=== PATIENT | female | born 1945 | race Caucasian/White ===

== ENCOUNTER → 2018-01-20 | Outpatient (CLI) | payer OTHER ==
[~2018-01-20] MED LIST: ISOVUE-370 76% 100ML VIAL (Q9967) As Ordered
== END ==
LOC: M RAD 10:25
DX: M17.11 Unilateral primary osteoarthritis, right knee (principal)
CPT/HCPCS: Q9967

== ENCOUNTER → 2018-06-27 | Outpatient (CLI) | payer OTHER | LOC: M RAD 09:16 | DX: S72.21XD Displaced subtrochanteric fracture of right femur, subsequent encounter for closed fracture with routine healing (principal) | CPT/HCPCS: 78315 ==

== ENCOUNTER → 2020-04-21 | Outpatient (CLI) | payer OTHER ==
[~2020-04-21] MED LIST changes: +ALEN70TA74 PO; +ASPI81TA26 PO; +ATOR1TAB19 PO; +AZEL0.1S3; +AZEL1SPR3 NARES; +BUSP1TAB PO; +CITA20TA6 PO; +CITA40TA PO; +COUM2.5T17 PO; +D31000TA2 PO; -ISOVUE-370 76% 100ML VIAL (Q9967) As Ordered; +LISI-538 PO; +LISI10TA15 PO; +MAGN1TAB26 PO; +NICO21PAT TD; +OMEP1CAP73 PO; +OMEP40CA2 PO; +ONDA-83 PO; +PEG1POW PO; +PERCOCET PO; +PRAV1TAB39 PO; +PRIN10TA PO; +SENO8.6T10 PO; +VICOBULK PO; +VITA-122 PO; +WARF-18 PO; +[UNRECOGNIZED DRUG - CODE] PO; +zantac OR
== END ==
LOC: M LABSMTC 10:23
PROVIDERS: ATTEND Anesthesiology
DX: Z01.818 Encounter for other preprocedural examination (principal)
CPT/HCPCS: C9803; U0003

== ENCOUNTER 2020-04-23 09:52 | Day surgery (SDC) | payer MEDICARE ==
[~2020-04-23] VITALS: Ht 157.5 cm; Wt 60.3 kg
[~2020-04-23 09:52] MED LIST changes: +LIDOCAINE 2% 100MG/5ML SDV (FOR ANES.) As Ordered ONE; +NS 1,000 ML IV ONE; +propofoL 200 MG/20 ML VIAL As Ordered ONE
--- NOTE | 2020-04-23 10:55 | ROOR ---
Patient Name: Asuncion Adamson Procedure Date: 04/23/2020 10:41 AM Date of : 1945 Age: 74 Room: [facility] Gender: Female Note Status: Finalized Procedure: Upper Endoscopy + Biopsies Indications: Heartburn, Exclusion of Fraire's esophagus Providers: Freddy Abrams MD Referring MD: [facility], Admin. Requesting Provider: Medicines: Monitored Anesthesia Care Complications: No immediate complications. Procedure: Pre-Anesthesia Assessment: - The heart rate, respiratory rate, oxygen saturations, blood pressure, adequacy of pulmonary ventilation, and response to care were monitored throughout the procedure. The Endoscope was introduced through the mouth, and advanced to the second part of duodenum. The upper GI endoscopy was accomplished without difficulty. The patient tolerated the procedure well. Findings: The Z-line was variable and was found 35 cm from the incisors. Multiple biopsies were obtained with cold forceps for evaluation to rule out Fraire's Esophagus randomly at the gastroesophageal junction. A small hiatal hernia was present. No other significant abnormalities were identified in a careful examination of the stomach. The exam of the duodenum was otherwise normal. Impression: - Z-line variable, 35 cm from the incisors. - Small hiatal hernia. - Multiple biopsies were obtained at the gastroesophageal junction. - The examination was otherwise normal. Recommendation: - Patient has a contact number available for emergencies. The signs and symptoms of potential delayed complications were discussed with the patient. Return to normal activities tomorrow. Written discharge instructions were provided to the patient. - High fiber diet. - Discharge patient to home. - Follow an antireflux regimen. - Continue present medications. - Await pathology results. - Telephone GI clinic for pathology results in 1 week. - Return to referring physician. - The findings and recommendations were discussed with the patient. Freddy Abrams MD Freddy Abrams MD 04/23/2020 10:55:05 AM Electronically signed by Freddy Abrams MD Number of Addenda: 0 Note Initiated On: 04/23/2020 10:41 AM Estimated Blood Loss: Estimated blood loss: none.
[2020-04-23 11:35] VITALS: BP 189/74
--- NOTE | 2020-04-23 11:44 | ROOR ---
Patient Name: Asuncion Adamson Procedure Date: 04/23/2020 10:42 AM Date of : 1945 Age: 74 Room: [facility] Gender: Female Note Status: Finalized Procedure: Total Colonoscopy to Cecum + Cold Snare Polypectomy + Biopsies Indications: Screening for colorectal malignant neoplasm Providers: Freddy Abarms MD Referring MD: [facility], Admin. Requesting Provider: Medicines: Monitored Anesthesia Care Complications: No immediate complications. Procedure: Pre-Anesthesia Assessment: - The heart rate, respiratory rate, oxygen saturations, blood pressure, adequacy of pulmonary ventilation, and response to care were monitored throughout the procedure. The Colonoscope was introduced through the anus and advanced to the cecum, identified by appendiceal orifice and ileocecal valve. The colonoscopy was performed without difficulty. The patient tolerated the procedure well. The quality of the bowel preparation was excellent. Findings: The perianal and digital rectal examinations were normal. Non-bleeding internal hemorrhoids were found during retroflexion. The hemorrhoids were small and Grade I (internal hemorrhoids that do not prolapse). Scattered small-mouthed diverticula were found in the recto-sigmoid colon, sigmoid colon and descending colon. A diminutive polyp was found in the cecum. The polyp was sessile. The polyp was removed with a cold biopsy forceps. Resection and retrieval were complete. A medium polyp was found in the mid ascending colon. The polyp was carpet-like. The polyp was removed with a cold snare. Resection and retrieval were complete. The exam was otherwise without abnormality on direct and retroflexion views. Impression: - Non-bleeding internal hemorrhoids. - Diverticulosis in the recto-sigmoid colon, in the sigmoid colon and in the descending colon. - One diminutive polyp in the cecum, removed with a cold biopsy forceps. Resected and retrieved. - One medium polyp in the mid ascending colon, removed with a cold snare. Resected and retrieved. - The examination was otherwise normal on direct and retroflexion views. - The exam was otherwise normal to the cecum. Recommendation: - Patient has a contact number available for emergencies. The signs and symptoms of potential delayed complications were discussed with the patient. Return to normal activities tomorrow. Written discharge instructions were provided to the patient. - High fiber diet. - Discharge patient to home. - Continue present medications. - Await pathology results. - Telephone GI clinic for pathology results in 1 week. - Return to referring physician. - Repeat colonoscopy for symptoms only. - The findings and recommendations were discussed with the patient. Freddy Abrams MD Freddy Abrams MD 04/23/2020 11:43:59 AM Electronically signed by Freddy Abrams MD Number of Addenda: 0 Note Initiated On: 04/23/2020 10:42 AM Estimated Blood Loss: Estimated blood loss: none.
== END 2020-04-23 11:52 | disposition home or self-care (01) ==
LOC: M OPP 09:52
PROVIDERS: ATTEND Internal Medicine Gastroenterology
DX: Z12.11 Encounter for screening for malignant neoplasm of colon (principal); D12.0 Benign neoplasm of cecum; D12.2 Benign neoplasm of ascending colon; K64.0 First degree hemorrhoids; K57.30 Diverticulosis of large intestine without perforation or abscess without bleeding; K22.8 Other specified diseases of esophagus; K44.9 Diaphragmatic hernia without obstruction or gangrene; R12 Heartburn; K21.9 Gastro-esophageal reflux disease without esophagitis; I10 Essential (primary) hypertension; F17.210 Nicotine dependence, cigarettes, uncomplicated; Z79.899 Other long term (current) drug therapy; Z88.0 Allergy status to penicillin

== ENCOUNTER → 2020-10-06 | Outpatient (CLI) | payer MEDICARE ==
[~2020-10-06] MED LIST changes: -LIDOCAINE 2% 100MG/5ML SDV (FOR ANES.) As Ordered ONE; -NS 1,000 ML IV ONE; -propofoL 200 MG/20 ML VIAL As Ordered ONE
== END ==
LOC: M LABSMTC 11:22
PROVIDERS: ATTEND Family Medicine
DX: Z20.828 Contact with and (suspected) exposure to other viral communicable diseases (principal)

== ENCOUNTER → 2020-11-04 | Outpatient (REF) | payer MEDICARE ==
[~2020-11-04] MED LIST changes: -ALEN70TA74 PO; +ALEN70TA82 PO; -LISI-538 PO; +LISI20TA33 PO
== END ==
LOC: M LAB REF 16:13
PROVIDERS: ATTEND Internal Medicine
DX: K21.9 Gastro-esophageal reflux disease without esophagitis (principal); R11.0 Nausea

== ENCOUNTER → 2021-09-14 | Outpatient (CLI) | payer MEDICARE ==
[~2021-09-14] MED LIST changes: +ISOVUE-300 61% 50ML VIAL As Ordered ONE; +LIDOCAINE 1% MDV 20ML VIAL As Ordered ONE; -PEG1POW PO; +POLY17PO18 PO; +methylPREDNISolone SUSP 40MG/ML 1ML VIAL (DEPO MEDROL) As Ordered ONE
--- NOTE | 2021-09-14 17:27 | REP ---
INDICATION: TROCHANTERIC BURSITIS RT HIP. COMPARISON: None TECHNIQUE: The procedure was performed by CLAY Fuentes, under the direct supervision of Dr. Campbell. The benefits and risks of the procedure were explained to the patient, and an informed consent was obtained. Directly prior to the start of the procedure, a formal time-out was completed in the procedure room. The right hip joint space was localized using fluoroscopic guidance. The skin was prepped and draped in a sterile fashion. Approximately 5 mL of 1% Lidocaine 10 mg/ml was used as a local anesthetic. Using fluoroscopic guidance, a #22 gauge spinal needle was inserted and advanced into the right hip joint space. Approximately 3 mL of Isovue 300 was injected to verify placement. Seven mL of a solution containing 5 mL 1% lidocaine 10 mg/ml and 2 mL Medrol 40 mg/mL was injected into the joint space. The needle was removed and hemostasis was achieved. FINDINGS: The patient tolerated the procedure well and there were no immediate complications. IMPRESSION: 1. Technically successful right hip injection. 0.1 minutes of fluoroscopy time was utilized for this procedure. Some fluoroscopic images are performed with last image hold technology. These images require no additional radiation. <Electronically signed by Ami James > 09/14/21 1723 <Electronically signed by Emmanuel Campbell > 09/14/21 1721
== END ==
LOC: M RADPRO 13:07
PROVIDERS: ATTEND Physician Assistant Surgical
DX: M70.61 Trochanteric bursitis, right hip (principal)
CPT/HCPCS: 20610; 77002; J1030; Q9967

== ENCOUNTER → 2021-10-22 | Outpatient (CLI) | payer MEDICARE ==
[~2021-10-22] MED LIST changes: -ISOVUE-300 61% 50ML VIAL As Ordered ONE; -LIDOCAINE 1% MDV 20ML VIAL As Ordered ONE; -LISI10TA15 PO; +LISI10TA24 PO; -methylPREDNISolone SUSP 40MG/ML 1ML VIAL (DEPO MEDROL) As Ordered ONE
== END ==
LOC: M PLAIMG 09:19
PROVIDERS: ATTEND Physician Assistant Surgical
DX: M70.61 Trochanteric bursitis, right hip (principal)

== ENCOUNTER → 2021-10-28 | Outpatient (REF) | payer MEDICARE ==
[2021-10-28 14:32] LABS: BACTERIA, URINE AUTO 1+ (NEGATIVE); MUCUS, URINE SMALL (NEGATIVE); RBC, URINE AUTO 1 /HPF (0-3); SQUAMOUS EPITHELIAL CELL UR AU 9 /HPF (0-6); WBC, URINE AUTO 1 /HPF (0-3)
== END ==
LOC: M LAB REF 13:08
PROVIDERS: ATTEND Internal Medicine
DX: R31.9 Hematuria, unspecified (principal)

== ENCOUNTER → 2021-11-19 | Outpatient (REF) | payer MEDICARE ==
[2021-11-19 14:11] LABS: BACTERIA, URINE AUTO NEGATIVE (NEGATIVE); MUCUS, URINE SMALL (NEGATIVE); RBC, URINE AUTO 0 /HPF (0-3); SQUAMOUS EPITHELIAL CELL UR AU 2 /HPF (0-6); WBC, URINE AUTO 0 /HPF (0-3)
== END ==
LOC: M LAB REF 12:36
PROVIDERS: ATTEND Internal Medicine
DX: R31.9 Hematuria, unspecified (principal)

== ENCOUNTER → 2021-11-24 | Outpatient (REF) | payer MEDICARE ==
[2021-11-25 14:28] LABS: C REACTIVE PROTEIN QUANTITATIV 0.56 MG/DL (0.00-0.30)
== END ==
LOC: M LAB REF 11:51
PROVIDERS: ATTEND Internal Medicine
DX: R10.9 Unspecified abdominal pain (principal)

== ENCOUNTER → 2021-12-01 | Outpatient (REF) | payer MEDICARE ==
[~2021-12-01] MED LIST changes: -D31000TA2 PO; +VITA100093 PO
== END ==
LOC: M LAB REF 11:55
PROVIDERS: ATTEND Internal Medicine
DX: D72.829 Elevated white blood cell count, unspecified (principal); D75.839 Thrombocytosis, unspecified; D64.9 Anemia, unspecified

== ENCOUNTER → 2021-12-02 | Outpatient (CLI) | payer MEDICARE ==
[~2021-12-02] MED LIST changes: +D31000TA2 PO; -VITA100093 PO
== END ==
LOC: M PLAIMG 14:20
PROVIDERS: ATTEND Internal Medicine
DX: J44.9 Chronic obstructive pulmonary disease, unspecified (principal); D72.829 Elevated white blood cell count, unspecified; I27.20 Pulmonary hypertension, unspecified

== ENCOUNTER → 2021-12-07 | Outpatient (REF) | payer MEDICARE ==
[~2021-12-07] MED LIST changes: -D31000TA2 PO; +VITA100093 PO
== END ==
LOC: M LAB REF 16:02
PROVIDERS: ATTEND Internal Medicine
DX: I12.9 Hypertensive chronic kidney disease with stage 1 through stage 4 chronic kidney disease, or unspecified chronic kidney disease (principal); D72.829 Elevated white blood cell count, unspecified; N18.9 Chronic kidney disease, unspecified

== ENCOUNTER → 2022-01-20 | Outpatient (CLI) | payer MEDICARE ==
[~2022-01-20] MED LIST changes: +ALBU8.5H; +AMLO1TAB24; +ATOR40TA75; +MAGN400T2; +SPIR-10; +VARE1TAB2; +VITA500C24 PO
== END ==
LOC: M WHC 12:44
PROVIDERS: ATTEND Internal Medicine
DX: Z12.31 Encounter for screening mammogram for malignant neoplasm of breast (principal); Z13.820 Encounter for screening for osteoporosis; Z80.42 Family history of malignant neoplasm of prostate; M81.6 Localized osteoporosis [Lequesne]

== ENCOUNTER → 2022-01-26 | Outpatient (CLI) | payer MEDICARE | LOC: M WHC 14:41 | PROVIDERS: ATTEND Internal Medicine | DX: M79.661 Pain in right lower leg (principal) ==

== ENCOUNTER 2022-02-04 10:56 | Outpatient (CLI) | payer MEDICARE ==
[~2022-02-04] VITALS: Ht 157.5 cm; Wt 60.0 kg
[2022-02-04] MEDS ORDERED: ZOLEDRONIC ACID 5 MG in IV 1 EA IV ONE (11:00)
[2022-02-04 11:16] VITALS: BP 127/62
[2022-02-04 11:54] VITALS: BP 148/71
== END 2022-02-04 12:00 | disposition home or self-care (01) ==
LOC: M INFU 10:56
PROVIDERS: ATTEND Internal Medicine
DX: M81.0 Age-related osteoporosis without current pathological fracture (principal); Z88.0 Allergy status to penicillin
CPT/HCPCS: 96365; J3489

== ENCOUNTER → 2022-03-24 | Outpatient (REF) | payer MEDICARE ==
[2022-03-24 13:11] LABS: BLOOD UREA NITROGEN 7 MG/DL (7-18); CALCIUM LEVEL 8.3 MG/DL (8.8-10.2); CARBON DIOXIDE LEVEL 23 MEQ/L (21-32); CHLORIDE LEVEL 98 MEQ/L (98-107); CREATININE FOR GFR 0.75 MG/DL (0.55-1.30); GLOMERULAR FILTRATION RATE > 60.0 (>39); GLUCOSE, FASTING 72 MG/DL (70-100); MAGNESIUM LEVEL 0.8 MG/DL (1.8-2.4); POTASSIUM SERUM 3.1 MEQ/L (3.5-5.1); SODIUM LEVEL 131 MEQ/L (136-145)
== END ==
LOC: M LAB REF 10:47
PROVIDERS: ATTEND Internal Medicine
DX: E78.00 Pure hypercholesterolemia, unspecified (principal); E83.42 Hypomagnesemia

== ENCOUNTER → 2022-04-22 | Outpatient (REF) | payer MEDICARE ==
[2022-04-23 10:22] LABS: URIC ACID 5.7 MG/DL (2.6-6.0)
[2022-04-23 10:48] LABS: CREATININE,RANDOM URINE 21.3 MG/DL; URIC ACID,RANDOM URINE 13.3 MG/DL
== END ==
LOC: M LAB REF 12:21
PROVIDERS: ATTEND Internal Medicine
DX: E87.1 Hypo-osmolality and hyponatremia (principal); N18.31 Chronic kidney disease, stage 3a; M79.604 Pain in right leg

== ENCOUNTER → 2022-05-13 | Outpatient (CLI) | payer MEDICARE | LOC: M LAB 11:30 | PROVIDERS: ATTEND Internal Medicine | DX: M25.571 Pain in right ankle and joints of right foot (principal); M79.89 Other specified soft tissue disorders ==

== ENCOUNTER → 2022-06-03 | Outpatient (CLI) | payer MEDICARE ==
[~2022-06-03] MED LIST changes: +FLON1SPR NARES; +FURO20TA2; +ONDA-83; +POTA-136; +SALI0.6530 NARES; +TUMS500C PO; +VITMTA PO
== END ==
LOC: M RAD 16:42
PROVIDERS: ATTEND Internal Medicine
DX: R53.1 Weakness (principal)

== ENCOUNTER → 2022-06-09 | Outpatient (CLI) | payer MEDICARE | LOC: M WHC 09:55 | PROVIDERS: ATTEND Physician Assistant Surgical | DX: M25.474 Effusion, right foot (principal) ==

== ENCOUNTER → 2022-10-19 | Outpatient (CLI) | payer MEDICARE | LOC: M WHC 09:58 | PROVIDERS: ATTEND Physician Assistant Medical | DX: M79.89 Other specified soft tissue disorders (principal); M79.661 Pain in right lower leg ==

== ENCOUNTER → 2022-12-14 | Outpatient (REF) | payer MEDICARE ==
[~2022-12-14] MED LIST changes: +METO1TAB32
[2022-12-14 17:57] LABS: APPEARANCE, URINE CLEAR (CLEAR); BACTERIA, URINE AUTO NEGATIVE (NEGATIVE); BILIRUBIN, URINE AUTO NEGATIVE (NEGATIVE); BLOOD, URINE BLOOD NEGATIVE (NEGATIVE); COLOR, URINE YELLOW (YELLOW); GLUCOSE, URINE (UA) AUTO NEGATIVE (NEGATIVE); KETONE, URINE AUTO NEGATIVE (NEGATIVE); LEUKOCYTE ESTERASE, URINE AUTO NEGATIVE (NEGATIVE); NITRITE, URINE AUTO NEGATIVE (NEGATIVE); PROTEIN, URINE AUTO NEGATIVE (NEGATIVE); RBC, URINE AUTO 0 /HPF (0-3); SPECIFIC GRAVITY URINE AUTO 1.005 (1.002-1.035); SQUAMOUS EPITHELIAL CELL UR AU 1 /HPF (0-6); UROBILINOGEN, URINE AUTO 0.2 mg/dL (0.0-2.0); WBC, URINE AUTO 1 /HPF (0-3)
== END ==
LOC: M LAB REF 16:39
PROVIDERS: ATTEND Physician Assistant Medical
DX: R31.9 Hematuria, unspecified (principal)

== ENCOUNTER → 2022-12-17 | Outpatient (CLI) | payer MEDICARE | LOC: M RAD 13:40 | PROVIDERS: ATTEND Surgery Vascular Surgery | DX: I83.811 Varicose veins of right lower extremity with pain (principal); I87.2 Venous insufficiency (chronic) (peripheral); I87.8 Other specified disorders of veins ==

== ENCOUNTER → 2023-01-06 | Outpatient (REF) | payer MEDICARE ==
[2023-01-06 17:13] LABS: APPEARANCE, URINE CLEAR (CLEAR); BACTERIA, URINE AUTO NEGATIVE (NEGATIVE); BILIRUBIN, URINE AUTO NEGATIVE (NEGATIVE); BLOOD, URINE BLOOD 2+ (NEGATIVE); CALCIUM OXALATE CRYSTALS SMALL; COLOR, URINE YELLOW (YELLOW); GLUCOSE, URINE (UA) AUTO NEGATIVE (NEGATIVE); KETONE, URINE AUTO NEGATIVE (NEGATIVE); LEUKOCYTE ESTERASE, URINE AUTO NEGATIVE (NEGATIVE); MUCUS, URINE SMALL (NEGATIVE); NITRITE, URINE AUTO NEGATIVE (NEGATIVE); PROTEIN, URINE AUTO 2+ mg/dL (NEGATIVE); RBC, URINE AUTO 1 /HPF (0-3); SPECIFIC GRAVITY URINE AUTO 1.011 (1.002-1.035); SQUAMOUS EPITHELIAL CELL UR AU 0 /HPF (0-6); UROBILINOGEN, URINE AUTO 0.2 mg/dL (0.0-2.0); WBC, URINE AUTO 1 /HPF (0-3)
== END ==
LOC: M LAB REF 16:06
PROVIDERS: ATTEND Internal Medicine
DX: I12.9 Hypertensive chronic kidney disease with stage 1 through stage 4 chronic kidney disease, or unspecified chronic kidney disease (principal); N18.31 Chronic kidney disease, stage 3a

== ENCOUNTER 2023-01-18 12:48 | Outpatient (CLI) | payer MEDICARE ==
[2023-01-18 12:55] VITALS: BP 155/69
[2023-01-18] MEDS ORDERED: ZOLEDRONIC ACID 5 MG in IV 1 EA IV ONE (13:00)
[2023-01-18 14:47] VITALS: BP 140/65
== END 2023-01-18 13:45 | disposition home or self-care (01) ==
LOC: M INFU 12:48
PROVIDERS: ATTEND Internal Medicine
DX: M81.0 Age-related osteoporosis without current pathological fracture (principal); Z88.0 Allergy status to penicillin
CPT/HCPCS: 96365; J3489

== ENCOUNTER → 2023-01-31 | Outpatient (CLI) | payer MEDICARE | LOC: M PLAIMG 09:42 | PROVIDERS: ATTEND Internal Medicine | DX: R06.02 Shortness of breath (principal); I70.0 Atherosclerosis of aorta; M41.84 Other forms of scoliosis, thoracic region ==

== ENCOUNTER → 2023-02-14 | Outpatient (CLI) | payer MEDICARE | LOC: M WHC 01-13 12:59 | PROVIDERS: ATTEND Internal Medicine | DX: Z12.31 Encounter for screening mammogram for malignant neoplasm of breast (principal); Z53.9 Procedure and treatment not carried out, unspecified reason ==

== ENCOUNTER → 2023-03-31 | Outpatient (REF) | payer MEDICARE ==
[~2023-03-31] MED LIST changes: +BACL5TAB2; +ROSU10TA6
== END ==
LOC: M LAB REF 17:13
PROVIDERS: ATTEND Nurse Practitioner Family
DX: R19.7 Diarrhea, unspecified (principal)

== ENCOUNTER 2023-04-22 10:23 | Inpatient (IN) | payer MEDICARE ==
[~2023-04-22] VITALS: Ht 157.5 cm; Wt 54.0 kg
[~2023-04-22 10:23] MED LIST changes: -ALBU8.5H; +ALBU8.5H PO; -AMLO1TAB24; +AMLO1TAB24 PO; -METO1TAB32; +METO1TAB32 PO; -POTA-136; +POTA-136 PO; -ROSU10TA6; +ROSU10TA6 PO
[2023-04-22 11:47] LABS: BASO # 0.1 10^3/uL (0.0-0.2); BASO % 0.9 % (0.0-1.0); EOS # 0.1 10^3/uL (0.0-0.5); EOS % 0.3 % (0.0-3.0); HEMATOCRIT 40.3 % (36.0-47.0); HEMOGLOBIN 13.7 g/dl (12.0-15.5); LYMPH # 1.9 10^3/uL (1.5-5.0); LYMPH % 12.3 % (24.0-44.0); MEAN CORPUSCULAR HEMOGLOBIN 32.4 pg (27.0-33.0); MEAN CORPUSCULAR VOLUME 95.3 fl (80.0-96.0); MONO # 1.5 10^3/uL (0.0-0.8); MONO % 9.7 % (2.0-8.0); NEUTROPHILS # 11.5 10^3/uL (1.5-8.5); NEUTROPHILS % 76.2 % (36.0-66.0); PLATELET COUNT, AUTOMATED 442 10^3/uL (150-450); RED BLOOD COUNT 4.23 10^6/uL (4.00-5.40); WHITE BLOOD COUNT 15.1 10^3/uL (4.0-10.0)
[2023-04-22 11:59] LABS: INR 1.07; PROTHROMBIN TIME 14.1 SECONDS (12.5-14.5)
[2023-04-22 12:12] LABS: LIPASE 23 U/L (12-53)
[2023-04-22 12:13] LABS: AMYLASE 41 U/L (30-118)
[2023-04-22 12:14] LABS: ALBUMIN 3.5 G/DL (3.2-5.2); ALKALINE PHOSPHATASE 110 U/L (46-116); ALT/SGPT 28 U/L (7.0-40); AST/SGOT 29 U/L (<34); BILIRUBIN,DIRECT 0.2 MG/DL (<0.4); BILIRUBIN,TOTAL 0.4 MG/DL (0.3-1.2); BLOOD UREA NITROGEN 12 MG/DL (9-23); CALCIUM LEVEL 9.6 MG/DL (8.3-10.6); CARBON DIOXIDE LEVEL 18 MMOL/L (20-31); CHLORIDE LEVEL 97 MMOL/L (98-107); CREATININE FOR GFR 0.93 MG/DL (0.55-1.30); GLOMERULAR FILTRATION RATE > 60.0 (>39); GLUCOSE, FASTING 102 MG/DL (74-106); POTASSIUM SERUM 3.6 MMOL/L (3.5-5.1); SODIUM LEVEL 131 MMOL/L (136-145); TOTAL PROTEIN 6.3 G/DL (5.7-8.2)
[2023-04-22] MEDS ORDERED: ONDANSETRON 4MG 2ML VIAL IV ONE (13:15)
[2023-04-22] MEDS: NS 1,000 ML IV SCH ×2 (13:27→20:26)
[2023-04-22] MEDS ORDERED: MAG SULF 1GM/100ML (MAG RUN) 1 GM in IV 1 EA IV ONE (15:15)
[2023-04-22] MEDS ORDERED: ISOVUE-370 76% 100ML VIAL As Ordered ONE (15:31)
[2023-04-22] MEDS: MAG SULF 1GM/100ML (MAG RUN) 1 GM in IV 1 EA IV SCH ×2 (17:03→18:41)
[2023-04-22] MEDS ORDERED: ALBUTEROL 90 MCG/ACT 8GM HFA INHALER INH PRN (18:20)
[2023-04-22] MEDS ORDERED: MED REC IN PROGRESS XX SCH (19:10)
[2023-04-22] MEDS ORDERED: BUSP10TA PO (19:30)
[2023-04-22] MEDS ORDERED: HOME MED LIST COMPLETE! XX SCH (19:35)
[2023-04-22] MEDS ORDERED: PILL CUTTER 1 EACH XX PRN (19:55)
[2023-04-22 20:55] VITALS: BP 166/96
[2023-04-22] MEDS ORDERED: METOPROLOL SUCC *XL* 25MG TAB (TopROL *XL*) PO SCH (21:00)
[2023-04-22] MEDS ORDERED: POTASSIUM CHLORIDE 10MEQ SR TABLET PO SCH (21:00)
[2023-04-22] MEDS ORDERED: busPIRone 5 MG TAB PO SCH (21:00)
[2023-04-22] MEDS ORDERED: amLODIPine 5 MG TAB PO SCH (21:00)
[2023-04-22] MEDS ORDERED: MAGNESIUM OXIDE 400MG TAB (MAG-OX) PO SCH (21:00)
[2023-04-22 21:06] LABS: RSV AMPLIFICATION NEGATIVE (NEGATIVE)
[2023-04-23] MEDS: NS 1,000 ML IV SCH (01:52)
[2023-04-23 06:44] LABS: HEMATOCRIT 34.6 % (36.0-47.0); HEMOGLOBIN 11.9 g/dl (12.0-15.5); MEAN CORPUSCULAR HEMOGLOBIN 32.8 pg (27.0-33.0); MEAN CORPUSCULAR HGB CONC 34.4 g/dl (32.0-36.5); MEAN CORPUSCULAR VOLUME 95.3 fl (80.0-96.0); PLATELET COUNT, AUTOMATED 396 10^3/uL (150-450); RED BLOOD COUNT 3.63 10^6/uL (4.00-5.40); WHITE BLOOD COUNT 11.9 10^3/uL (4.0-10.0)
[2023-04-23 07:18] LABS: BLOOD UREA NITROGEN 8 MG/DL (9-23); CALCIUM LEVEL 8.1 MG/DL (8.3-10.6); CARBON DIOXIDE LEVEL 20 MMOL/L (20-31); CHLORIDE LEVEL 102 MMOL/L (98-107); CREATININE FOR GFR 0.66 MG/DL (0.55-1.30); GLOMERULAR FILTRATION RATE > 60.0 (>39); GLUCOSE, FASTING 89 MG/DL (74-106); MAGNESIUM LEVEL 1.6 MG/DL (1.8-2.4); POTASSIUM SERUM 3.6 MMOL/L (3.5-5.1); SODIUM LEVEL 131 MMOL/L (136-145)
[2023-04-23] MEDS ORDERED: MAG SULF 1GM/100ML (MAG RUN) 1 GM in IV 1 EA IV ONE (08:05)
[2023-04-23] MEDS ORDERED: LR 1,000 ML IV SCH (08:05)
[2023-04-23] MEDS ORDERED: ENOXAPARIN 40MG/0.4ML SYRINGE (J1650 PER 10MG) SC SCH (09:00)
[2023-04-23] MEDS ORDERED: POTASSIUM CHLORIDE 10MEQ SR TABLET PO SCH (09:00)
[2023-04-23] MEDS ORDERED: CitaloPRAM (CeleXA) 20 MG TAB PO SCH (09:00)
[2023-04-23] MEDS ORDERED: OMEP1CAP73 PO (10:23)
[2023-04-23] MEDS ORDERED: AMLO1TAB24 PO (10:23)
[2023-04-23] MEDS ORDERED: METO1TAB32 PO (10:23)
[2023-04-23] MEDS ORDERED: VITMTA PO (10:23)
[2023-04-23] MEDS ORDERED: CELE20TA PO (10:23)
[2023-04-23] MEDS ORDERED: BUSP5TA PO (10:23)
[2023-04-23] MEDS ORDERED: MAGN400T2 PO (10:23)
[2023-04-23] MEDS ORDERED: POTA-136 PO (10:23)
[2023-04-23] MEDS ORDERED: ALBU8.5H PO (10:23)
[2023-04-23] MEDS ORDERED: ROSU10TA6 PO (10:23)
[2023-04-23] MEDS ORDERED: BUSP10TA PO (10:23)
[2023-04-23 13:10] VITALS: BP 129/67; TEMP 96.9; O2SAT 98
== END 2023-04-23 13:10 | disposition home or self-care (01) | DRG 641 ==
LOC: M ED 10:23 → M ED INP 18:19
PROVIDERS: ADMIT Family Medicine; ATTEND Family Medicine
DX: E83.42 Hypomagnesemia (principal); E53.8 Deficiency of other specified B group vitamins; E03.9 Hypothyroidism, unspecified; E78.5 Hyperlipidemia, unspecified; I10 Essential (primary) hypertension; F41.9 Anxiety disorder, unspecified; J44.9 Chronic obstructive pulmonary disease, unspecified; Z79.890 Hormone replacement therapy; Z79.899 Other long term (current) drug therapy; Z20.822 Contact with and (suspected) exposure to COVID-19; Z88.0 Allergy status to penicillin; Z87.891 Personal history of nicotine dependence

== ENCOUNTER → 2023-05-30 | Outpatient (CLI) | payer MEDICARE ==
[~2023-05-30] MED LIST changes: +BUSP10TA PO; +BUSP5TA PO; +CELE20TA PO; +MAGN400T2 PO
== END ==
LOC: M PLAIMG 15:25
PROVIDERS: ATTEND Internal Medicine
DX: M54.40 Lumbago with sciatica, unspecified side (principal); M25.78 Osteophyte, vertebrae; M48.56XA Collapsed vertebra, not elsewhere classified, lumbar region, initial encounter for fracture; M48.54XA Collapsed vertebra, not elsewhere classified, thoracic region, initial encounter for fracture; I70.0 Atherosclerosis of aorta

== ENCOUNTER → 2023-07-25 | Outpatient (CLI) | payer MEDICARE | LOC: M RAD 09:50 | PROVIDERS: ATTEND Physician Assistant Surgical | DX: S80.01XA Contusion of right knee, initial encounter (principal); M17.11 Unilateral primary osteoarthritis, right knee; M25.461 Effusion, right knee; M11.261 Other chondrocalcinosis, right knee; S82.091A Other fracture of right patella, initial encounter for closed fracture; X58.XXXA Exposure to other specified factors, initial encounter; Y92.9 Unspecified place or not applicable; Y93.9 Activity, unspecified; Y99.9 Unspecified external cause status ==

== ENCOUNTER 2023-08-17 13:22 | Day surgery (SDC) | payer MEDICARE, MEDICAID ==
[~2023-08-17] VITALS: Ht 157.5 cm; Wt 56.3 kg
[~2023-08-17 13:22] MED LIST changes: +BACL5TAB2 PO; +CITA10TA7 PO; +CREO24CA PO; +NS 1,000 ML IV ONE; +OMEP-173 PO; +POTA1TAB23 PO; +ROSU20TA61 PO
[2023-08-17] MEDS ORDERED: fentaNYL 100 MCG/2 ML INJECTION As Ordered ONE (15:10)
[2023-08-17 15:42] VITALS: TEMP 96.7
[2023-08-17 16:06] VITALS: BP 117/64; O2SAT 98
== END 2023-08-17 16:06 | disposition home or self-care (01) ==
LOC: M OPP 13:22
PROVIDERS: ATTEND Internal Medicine Gastroenterology
DX: K51.90 Ulcerative colitis, unspecified, without complications (principal); K64.0 First degree hemorrhoids; K57.30 Diverticulosis of large intestine without perforation or abscess without bleeding; R19.7 Diarrhea, unspecified; Z86.010 Personal history of colon polyps; K44.9 Diaphragmatic hernia without obstruction or gangrene; K22.89 Other specified disease of esophagus; K31.89 Other diseases of stomach and duodenum; R12 Heartburn; F17.200 Nicotine dependence, unspecified, uncomplicated; Z79.02 Long term (current) use of antithrombotics/antiplatelets; Z79.1 Long term (current) use of non-steroidal anti-inflammatories (NSAID); Z79.891 Long term (current) use of opiate analgesic; Z79.83 Long term (current) use of bisphosphonates
CPT/HCPCS: 43239; 45380; 88305; J3010

== ENCOUNTER → 2023-11-10 | Outpatient (CLI) | payer MEDICARE, MEDICAID ==
[~2023-11-10] MED LIST changes: -NS 1,000 ML IV ONE
== END ==
LOC: M LAB 15:25
PROVIDERS: ATTEND Internal Medicine Gastroenterology
DX: R19.7 Diarrhea, unspecified (principal)

== ENCOUNTER → 2023-11-24 | Outpatient (CLI) | payer MEDICARE, MEDICAID ==
[~2023-11-24] MED LIST changes: +E-Z-GAS II EFFERVESCENT PACKET (SODIUM BICARB./CITRIC ACID/SIMETHICONE) As Ordered ONE; +E-Z-HD 98% w/w 340GM SUSP BTL As Ordered ONE; +E-Z-PAQUE 96% w/w SUSP 176GM BTL As Ordered ONE; -SALI0.6530 NARES; +SODI88SP NARES
== END ==
LOC: M RAD 07:46
PROVIDERS: ATTEND Internal Medicine Gastroenterology
DX: R19.7 Diarrhea, unspecified (principal); Z96.641 Presence of right artificial hip joint; R93.3 Abnormal findings on diagnostic imaging of other parts of digestive tract

== ENCOUNTER 2024-01-05 13:31 | Observation (INO) | payer MEDICARE, MEDICAID ==
[~2024-01-05] VITALS: Ht 157.5 cm; Wt 53.0 kg
[~2024-01-05 13:31] MED LIST changes: -E-Z-GAS II EFFERVESCENT PACKET (SODIUM BICARB./CITRIC ACID/SIMETHICONE) As Ordered ONE; -E-Z-HD 98% w/w 340GM SUSP BTL As Ordered ONE; -E-Z-PAQUE 96% w/w SUSP 176GM BTL As Ordered ONE
[2024-01-05] MEDS ORDERED: AMLO2.5T3 PO (14:33)
[2024-01-05] MEDS ORDERED: ERGO500029 PO (14:33)
[2024-01-05] MEDS: ACETAMINOPH W/CODEINE #3 TAB UD PO ONE (17:57)
[2024-01-05] MEDS: BOOSTRIX VACCINE (TETANUS/DIPHTH/ACEL. PERTUSSIS) 0.5ML SYR IM ONE (18:33)
[2024-01-05 18:53] LABS: BASO # 0.1 10^3/uL (0.0-0.2); BASO % 0.8 % (0.0-1.0); EOS % 0.2 % (0.0-3.0); HEMATOCRIT 39.5 % (36.0-47.0); HEMOGLOBIN 14.1 g/dl (12.0-15.5); LYMPH # 1.5 10^3/uL (1.5-5.0); LYMPH % 13.1 % (24.0-44.0); MEAN CORPUSCULAR HEMOGLOBIN 34.1 pg (27.0-33.0); MEAN CORPUSCULAR HGB CONC 35.7 g/dl (32.0-36.5); MEAN CORPUSCULAR VOLUME 95.6 fl (80.0-96.0); MONO # 1.2 10^3/uL (0.0-0.8); MONO % 10.1 % (2.0-8.0); NEUTROPHILS # 8.8 10^3/uL (1.5-8.5); NEUTROPHILS % 75.2 % (36.0-66.0); PLATELET COUNT, AUTOMATED 375 10^3/uL (150-450); RED BLOOD COUNT 4.13 10^6/uL (4.00-5.40); WHITE BLOOD COUNT 11.7 10^3/uL (4.0-10.0)
[2024-01-05 19:02] LABS: BLOOD UREA NITROGEN 10 MG/DL (9-23); CALCIUM LEVEL 9.5 MG/DL (8.3-10.6); CARBON DIOXIDE LEVEL 23 MMOL/L (20-31); CHLORIDE LEVEL 98 MMOL/L (98-107); CREATININE FOR GFR 0.82 MG/DL (0.55-1.30); GLOMERULAR FILTRATION RATE > 60.0 (>39); GLUCOSE, FASTING 121 MG/DL (74-106); POTASSIUM SERUM 3.9 MMOL/L (3.5-5.1); SODIUM LEVEL 130 MMOL/L (136-145)
[2024-01-05 19:05] LABS: INR 0.98; PARTIAL THROMBOPLASTIN TIME 33.4 SECONDS (24.8-34.2); PROTHROMBIN TIME 12.7 SECONDS (12.5-14.5)
[2024-01-05] MEDS ORDERED: ALBUTEROL SULFATE 2.5MG/0.5ML INH NEB SOLN NEB PRN (21:20)
[2024-01-05] MEDS ORDERED: ONDANSETRON 4MG 2ML VIAL IV PRN (21:20)
[2024-01-05 21:44] VITALS: BP 168/72
[2024-01-05 22:00] VITALS: BP 168/72
[2024-01-05 22:22] VITALS: BP 170/84
[2024-01-05] MEDS: METOPROLOL SUCC *XL* 25MG TAB (TopROL *XL*) PO SCH (22:22)
[2024-01-05 22:50] VITALS: BP 168/72; TEMP 97.2; O2SAT 96
[2024-01-05] MEDS ORDERED: ALBU8.5H INH (23:15)
[2024-01-05] MEDS ORDERED: LOPE1CAP5 PO (23:15)
[2024-01-05] MEDS ORDERED: MULT-193 PO (23:15)
[2024-01-05] MEDS ORDERED: POTA-136 PO (23:15)
[2024-01-05] MEDS ORDERED: HOME MED LIST COMPLETE! XX SCH (23:20)
[2024-01-06 02:36] VITALS: BP 151/71; TEMP 98.1; O2SAT 95
[2024-01-06] MEDS: NORCO, ANEXSIA 5/325MG TABLET (HYDROcodone/ACETAMINOPHEN) PO PRN (02:42)
[2024-01-06 05:38] VITALS: BP 154/68; TEMP 98.4; O2SAT 95
[2024-01-06 05:51] LABS: APPEARANCE, URINE HAZY (CLEAR); BACTERIA, URINE AUTO NEGATIVE (NEGATIVE); BILIRUBIN, URINE AUTO NEGATIVE (NEGATIVE); BLOOD, URINE BLOOD 2+ (NEGATIVE); COLOR, URINE YELLOW (YELLOW); GLUCOSE, URINE (UA) AUTO NEGATIVE (NEGATIVE); KETONE, URINE AUTO TRACE mg/dL (NEGATIVE); LEUKOCYTE ESTERASE, URINE AUTO NEGATIVE (NEGATIVE); NITRITE, URINE AUTO NEGATIVE (NEGATIVE); PROTEIN, URINE AUTO 2+ mg/dL (NEGATIVE); RBC, URINE AUTO 0 /HPF (0-3); SPECIFIC GRAVITY URINE AUTO 1.012 (1.002-1.035); SQUAMOUS EPITHELIAL CELL UR AU 0 /HPF (0-6); UROBILINOGEN, URINE AUTO 0.2 mg/dL (0.0-2.0); WBC, URINE AUTO 1 /HPF (0-3)
[2024-01-06 06:46] LABS: BLOOD UREA NITROGEN 13 MG/DL (9-23); CALCIUM LEVEL 9.4 MG/DL (8.3-10.6); CARBON DIOXIDE LEVEL 25 MMOL/L (20-31); CHLORIDE LEVEL 98 MMOL/L (98-107); CREATININE FOR GFR 0.83 MG/DL (0.55-1.30); GLOMERULAR FILTRATION RATE > 60.0 (>39); GLUCOSE, FASTING 96 MG/DL (74-106); POTASSIUM SERUM 4.1 MMOL/L (3.5-5.1); SODIUM LEVEL 131 MMOL/L (136-145)
[2024-01-06] MEDS: ACETAMINOPHEN TAB 650MG DOSE (2X325MG) PO PRN (06:57)
[2024-01-06 10:26] VITALS: O2SAT 93
[2024-01-06] MEDS ORDERED: PERC5TAB12 PO (11:20)
== END 2024-01-06 12:24 | disposition home or self-care (01) ==
LOC: M ED 15:00 → M ED INP 21:18 → ENRESERV 22:23 → M MSPAV 22:41
PROVIDERS: ADMIT Internal Medicine; ATTEND Internal Medicine
DX: S62.165A Nondisplaced fracture of pisiform, left wrist, initial encounter for closed fracture (principal); W19.XXXA Unspecified fall, initial encounter; Y92.481 Parking lot as the place of occurrence of the external cause; Y93.9 Activity, unspecified; I10 Essential (primary) hypertension; K21.9 Gastro-esophageal reflux disease without esophagitis; F41.9 Anxiety disorder, unspecified; F32.A Depression, unspecified; J44.9 Chronic obstructive pulmonary disease, unspecified; Z79.899 Other long term (current) drug therapy; Z88.0 Allergy status to penicillin; Z87.891 Personal history of nicotine dependence
CPT/HCPCS: 36415; 70450; 70486; 72125; 73070; 73090; 73110; 73130; 73200; 80048; 81001; 85025; 85610; 85730; 90471; 90715; 93005; 97161; 97165; 99284; G0378

== ENCOUNTER → 2024-02-16 | Outpatient (CLI) | payer MEDICARE, MEDICAID ==
[~2024-02-16] MED LIST changes: +ALBU8.5H INH; +AMLO2.5T3 PO; +D 50CAP2; +ERGO500029 PO; +LOPE1CAP5 PO; +MULT-193 PO; +PERC5TAB12 PO; -ROSU10TA6 PO; +ROSU10TA61 PO
== END ==
LOC: M WHC 12:54
PROVIDERS: ATTEND Internal Medicine
DX: Z12.31 Encounter for screening mammogram for malignant neoplasm of breast (principal); Z13.820 Encounter for screening for osteoporosis; M81.0 Age-related osteoporosis without current pathological fracture; M85.89 Other specified disorders of bone density and structure, multiple sites; R92.323 Mammographic fibroglandular density, bilateral breasts

== ENCOUNTER → 2024-02-23 | Outpatient (CLI) | payer MEDICARE, MEDICAID | LOC: M SOG 07:53 | PROVIDERS: ATTEND Physician Assistant | DX: S60.212A Contusion of left wrist, initial encounter (principal); Y93.9 Activity, unspecified; Y92.9 Unspecified place or not applicable ==

== ENCOUNTER 2024-06-01 11:46 | Outpatient (CLI) | payer MEDICARE, MEDICAID ==
[~2024-06-01] VITALS: Ht 157.5 cm; Wt 55.5 kg
[2024-06-01] MEDS ORDERED: ZOLEDRONIC ACID 5 MG in IV 1 EA IV ONE (12:00)
[2024-06-01 12:05] VITALS: BP 155/70; O2SAT 98
[2024-06-01] MEDS: ZOLEDRONIC ACID 5 MG in IV 1 EA IV ONE (12:11)
[2024-06-01 12:50] VITALS: BP 151/68; O2SAT 96
== END 2024-06-01 12:50 ==
LOC: M INFU 11:46
PROVIDERS: ATTEND Internal Medicine
DX: M81.0 Age-related osteoporosis without current pathological fracture (principal); Z88.0 Allergy status to penicillin
CPT/HCPCS: 96413; J3489

== ENCOUNTER → 2024-06-26 | Outpatient (REF) | payer MEDICARE, MEDICAID ==
[2024-06-26 13:50] LABS: APPEARANCE, URINE CLEAR (CLEAR); BACTERIA, URINE AUTO NEGATIVE (NEGATIVE); BILIRUBIN, URINE AUTO NEGATIVE (NEGATIVE); BLOOD, URINE BLOOD 1+ (NEGATIVE); COLOR, URINE YELLOW (YELLOW); GLUCOSE, URINE (UA) AUTO NEGATIVE (NEGATIVE); KETONE, URINE AUTO NEGATIVE (NEGATIVE); LEUKOCYTE ESTERASE, URINE AUTO NEGATIVE (NEGATIVE); NITRITE, URINE AUTO NEGATIVE (NEGATIVE); PROTEIN, URINE AUTO 2+ mg/dL (NEGATIVE); RBC, URINE AUTO 0 /HPF (0-3); SPECIFIC GRAVITY URINE AUTO 1.009 (1.002-1.035); SQUAMOUS EPITHELIAL CELL UR AU 1 /HPF (0-6); UROBILINOGEN, URINE AUTO 0.2 mg/dL (0.0-2.0); WBC, URINE AUTO 1 /HPF (0-3)
== END ==
LOC: M LAB REF 12:32
PROVIDERS: ATTEND Internal Medicine
DX: N18.32 Chronic kidney disease, stage 3b (principal)

== ENCOUNTER → 2024-07-16 | Outpatient (CLI) | payer MEDICARE, MEDICAID ==
[~2024-07-16] MED LIST changes: -ROSU20TA61 PO; +ROSU20TA86 PO
== END ==
LOC: M RAD 15:38
PROVIDERS: ATTEND Internal Medicine
DX: N18.32 Chronic kidney disease, stage 3b (principal); N28.1 Cyst of kidney, acquired; N26.1 Atrophy of kidney (terminal)

== ENCOUNTER → 2024-12-20 | Outpatient (CLI) | payer MEDICARE, MEDICAID | LOC: M PLAIMG 12:37 | PROVIDERS: ATTEND Internal Medicine | DX: M47.812 Spondylosis without myelopathy or radiculopathy, cervical region (principal); M46.92 Unspecified inflammatory spondylopathy, cervical region; M54.2 Cervicalgia; M25.511 Pain in right shoulder; M25.512 Pain in left shoulder ==

== ENCOUNTER → 2025-02-18 | Outpatient (CLI) | payer MEDICARE, MEDICAID | LOC: M WHC 10:53 | PROVIDERS: ATTEND Internal Medicine | DX: Z12.31 Encounter for screening mammogram for malignant neoplasm of breast (principal); R92.323 Mammographic fibroglandular density, bilateral breasts ==

== ENCOUNTER → 2025-05-21 | Outpatient (CLI) | payer MEDICARE, MEDICAID | LOC: M WUC 11:47 | PROVIDERS: ATTEND Nurse Practitioner Adult Health | DX: R05.9 Cough, unspecified (principal) ==

== ENCOUNTER → 2025-05-21 | Outpatient (REF) | payer MEDICARE, MEDICAID ==
[2025-05-21 13:26] LABS: RSV AMPLIFICATION NEGATIVE (NEGATIVE)
== END ==
LOC: M LAB REF 12:02
PROVIDERS: ATTEND Nurse Practitioner Adult Health
DX: J02.9 Acute pharyngitis, unspecified (principal)

== ENCOUNTER 2025-05-30 15:52 | Emergency (ER) | payer MEDICARE, MEDICAID ==
[~2025-05-30] VITALS: Ht 160 cm; Wt 56.8 kg
[2025-05-30 15:59] VITALS: BP 108/61; TEMP 97.4; O2SAT 95
[2025-05-30 17:27] LABS: BASO # 0.2 10^3/uL (0.0-0.2); BASO % 1.4 % (0.0-1.0); EOS # 0.1 10^3/uL (0.0-0.5); EOS % 1.1 % (0.0-3.0); LYMPH # 2.1 10^3/uL (1.5-5.0); LYMPH % 19.0 % (24.0-44.0); MONO # 1.0 10^3/uL (0.0-0.8); MONO % 8.7 % (2.0-8.0); NEUTROPHILS # 7.4 10^3/uL (1.5-8.5); NEUTROPHILS % 66.7 % (36.0-66.0); PLATELET COUNT, AUTOMATED 472 10^3/uL (150-450)
[2025-05-30 17:57] LABS: ALT/SGPT 16 U/L (7.0-40); AST/SGOT 27 U/L (<34); CALCIUM LEVEL 9.2 MG/DL (8.3-10.6); CARBON DIOXIDE LEVEL 22 MMOL/L (20-31); CHLORIDE LEVEL 97 MMOL/L (98-107); CK-MB VALUE MASS 2.3 NG/ML (<3.6); CREATININE FOR GFR 1.41 MG/DL (0.55-1.30); GLOMERULAR FILTRATION RATE 38.4 (>39); POTASSIUM SERUM 4.7 MMOL/L (3.5-5.1); SODIUM LEVEL 130 MMOL/L (136-145)
[2025-05-30 17:59] LABS: CPK CREATINE PHOSPHOKINASE 45 U/L (34-145); MB/CK RELATIVE INDEX 5.11 (< OR =4)
== END 2025-05-30 17:20 | disposition left against medical advice (07) ==
LOC: M ED 15:52
DX: Z53.21 Procedure and treatment not carried out due to patient leaving prior to being seen by health care provider (principal)

== ENCOUNTER → 2025-06-03 | Outpatient (REF) | payer MEDICARE, MEDICAID | LOC: M LAB REF 11:55 | PROVIDERS: ATTEND Internal Medicine | DX: M19.90 Unspecified osteoarthritis, unspecified site (principal) ==

== ENCOUNTER 2025-08-23 10:22 | Inpatient (IN) | payer MEDICARE, MEDICAID ==
[~2025-08-23] VITALS: Ht 162.6 cm; Wt 50.9 kg
[~2025-08-23 10:22] MED LIST changes: +CITA20TA7; +COLA100C5 PO; -D 50CAP2; +D 50CAP2 PO; +DULC5TAB PO; +FLON1SPR; +LIDO76.52 TOP; +NORT25CA2 PO; +ONETAB33 PO; -ROSU10TA61 PO; +ROSU10TA90 PO; -SODI88SP NARES; +SODI88SP7 NARES; +SODIGEL TOP
[2025-08-23] MEDS: LIDOCAINE 2% 5 ML JELLY UROJET TOP ONE (11:45)
[2025-08-23 12:12] LABS: BASO # 0.1 10^3/uL (0.0-0.2); BASO % 0.9 % (0.0-1.0); EOS # 0.1 10^3/uL (0.0-0.5); EOS % 0.5 % (0.0-3.0); LYMPH # 2.2 10^3/uL (1.5-5.0); LYMPH % 14.9 % (24.0-44.0); MONO # 1.2 10^3/uL (0.0-0.8); MONO % 8.4 % (2.0-8.0); NEUTROPHILS # 11.0 10^3/uL (1.5-8.5); NEUTROPHILS % 74.8 % (36.0-66.0); PLATELET COUNT, AUTOMATED 348 10^3/uL (150-450)
[2025-08-23 12:33] LABS: CK-MB VALUE MASS 9.9 NG/ML (<3.6)
[2025-08-23 12:35] LABS: CPK CREATINE PHOSPHOKINASE 194.0 U/L (34-145); MB/CK RELATIVE INDEX 5.1 (< OR =4)
[2025-08-23 12:37] LABS: INR 0.92
[2025-08-23] MEDS: NS 500 ML IV ONE (12:48)
[2025-08-23 12:53] LABS: VENOUS BASE EXCESS -2.9 (-2.0-2.0); VENOUS HCO3 23.5 MMOL/L (23.0-27.0); VENOUS O2 SATURATION 81.0 % (60.0-80.0); VENOUS PARTIAL PRESSURE CO2 47.2 mmHg (38.0-50.0); VENOUS PARTIAL PRESSURE O2 49.8 mmHg (30.0-50.0); VENOUS PH 7.315 UNITS (7.330-7.430); VENOUS STANDARD HCO3 21.7 MMOL/L; VENOUS TOTAL CO2 24.9 MMOL/L (24.0-28.0)
[2025-08-23 13:17] LABS: KETONE, URINE AUTO RFX NEGATIVE (NEGATIVE); LEUKOCYTE ESTERASE UR AUTO RFX NEGATIVE (NEGATIVE); NITRITE, URINE AUTO RFX NEGATIVE (NEGATIVE); RBC, URINE AUTO RFX 3 /HPF (0-3); SQUAM EPITHELIAL CELL UR AURFX 0 /HPF (0-6); WBC, URINE AUTO RFX 14 /HPF (0-3)
[2025-08-23 14:12] LABS: ETHYL ALCOHOL (ETHANOL) < 0.003 % (0.000-0.010)
[2025-08-23 14:13] LABS: CPK CREATINE PHOSPHOKINASE 164 U/L (34-145); SALICYLATE LEVEL < 3.0 MG/DL (<30)
[2025-08-23 14:14] LABS: ALT/SGPT 9 U/L (7.0-40); AST/SGOT 20 U/L (<34); CALCIUM LEVEL 8.7 MG/DL (8.3-10.6); CARBON DIOXIDE LEVEL 22 MMOL/L (20-31); CHLORIDE LEVEL 107 MMOL/L (98-107); CK-MB VALUE MASS 7.6 NG/ML (<3.6); CREATININE FOR GFR 3.76 MG/DL (0.55-1.30); GLOMERULAR FILTRATION RATE 11.8 (>39); MB/CK RELATIVE INDEX 4.63 (< OR =4); POTASSIUM SERUM 3.7 MMOL/L (3.5-5.1); SODIUM LEVEL 139 MMOL/L (136-145)
[2025-08-23] MEDS: NS (Normal Saline) 0.9% 1,000 ML IV ONE (15:35)
[2025-08-23] MEDS ORDERED: MAALOX 30 ML SUSP *UDC PO PRN (15:55)
[2025-08-23] MEDS ORDERED: IPRATROPIUM 0.5 MG/ALBUTEROL 2.5 MG INH SOL UD 3 ML NEB PRN (15:55)
[2025-08-23] MEDS ORDERED: AMLO2.5T3 PO (16:12)
[2025-08-23] MEDS ORDERED: HOME MED LIST COMPLETE! XX SCH (16:15)
[2025-08-23] MEDS: NS (Normal Saline) 0.9% 1,000 ML IV SCH (17:06)
[2025-08-23 17:30] VITALS: BP 135/80; TEMP 96.6; O2SAT 98
[2025-08-23] MEDS: cefTRIAXone SOD 1 GM in DEXTROSE 5% (D5W) ADV/MINI-BAG 50 ML IV SCH (17:30)
[2025-08-23] MEDS ORDERED: SODIUM CHLORIDE 0.9% NASAL GEL 15GM (AYR) PRN (17:35)
[2025-08-23] MEDS ORDERED: ALBUTEROL 90 MCG/ACT 8 GM HFA INHALER INH PRN (17:35)
[2025-08-23] MEDS: OMEPRAZOLE 20MG CAP PO SCH (18:00)
[2025-08-23] MEDS: CALCIUM CARBONATE 500 MG CHEW U/D PO SCH (18:11)
[2025-08-23] MEDS: ASPIRIN 81 MG ENTERIC TABLET PO SCH (18:12)
[2025-08-23] MEDS: MULTIVITAMINS/MINERALS THERAP 1 TAB PO SCH (18:15)
[2025-08-23] MEDS: VITAMIN D 1,000 INTERNATIONAL UNITS TABLET PO SCH (18:15)
[2025-08-23] MEDS: BISACODYL 10 MG SUPP PR ONE (18:30)
[2025-08-23] MEDS: IPRATROPIUM 0.5 MG/ALBUTEROL 2.5 MG INH SOL UD 3 ML NEB SCH (20:10)
[2025-08-23 20:30] VITALS: BP 107/63; TEMP 97.8; O2SAT 99
[2025-08-23] MEDS ORDERED: BISACODYL 10 MG SUPP PR PRN (21:00)
[2025-08-23] MEDS: METOPROLOL SUCC. 25 MG *XL* TAB PO SCH (21:00)
[2025-08-23] MEDS ORDERED: DOCUSATE SODIUM 100 MG CAPSULE PO SCH (21:00)
[2025-08-23] MEDS: SENNOSIDES/DOCUSATE SODIUM 8.6 MG/50MG TAB PO SCH (21:23)
[2025-08-23] MEDS: NORTRIPTYLINE 25 MG CAP PO SCH (21:24)
[2025-08-23] MEDS: ROSUVASTATIN 10 MG TAB PO SCH (21:24)
[2025-08-23] MEDS: HEPARIN SOD 5000 UNITS/ML 1 ML VIAL/SYRINGE SC SCH (21:25)
[2025-08-23] MEDS: ACETAMINOPHEN 325 MG TAB PO PRN (21:28)
[2025-08-24 00:28] VITALS: BP 96/53; TEMP 97; O2SAT 98
[2025-08-24 03:59] VITALS: BP 123/59; TEMP 97; O2SAT 98
[2025-08-24 04:52] LABS: BASO # 0.1 10^3/uL (0.0-0.2); BASO % 0.9 % (0.0-1.0); EOS # 0.1 10^3/uL (0.0-0.5); EOS % 1.4 % (0.0-3.0); LYMPH # 2.8 10^3/uL (1.5-5.0); LYMPH % 35.9 % (24.0-44.0); MONO # 0.8 10^3/uL (0.0-0.8); MONO % 9.7 % (2.0-8.0); NEUTROPHILS # 4.0 10^3/uL (1.5-8.5); NEUTROPHILS % 51.7 % (36.0-66.0); PLATELET COUNT, AUTOMATED 274 10^3/uL (150-450)
[2025-08-24 05:17] LABS: CALCIUM LEVEL 7.8 MG/DL (8.3-10.6); CARBON DIOXIDE LEVEL 19.0 MMOL/L (20-31); CHLORIDE LEVEL 105.0 MMOL/L (98-107); CREATININE FOR GFR 3.43 MG/DL (0.55-1.30); GLOMERULAR FILTRATION RATE 13.2 (>39); MAGNESIUM LEVEL 1.2 MG/DL (1.8-2.4); POTASSIUM SERUM 3.0 MMOL/L (3.5-5.1); SODIUM LEVEL 137.0 MMOL/L (136-145)
[2025-08-24 07:14] VITALS: BP 148/70; TEMP 96.9; O2SAT 97
[2025-08-24] MEDS: POTASSIUM CHLORIDE 10MEQ SR TABLET PO ONE ×2 (07:58→11:27)
[2025-08-24] MEDS: MAG SULF 1GM/100ML (MAG RUN) 1 GM in IV 1 EA IV SCH (08:00)
[2025-08-24 11:17] VITALS: BP 142/77; TEMP 96.8; O2SAT 100
[2025-08-24 15:29] VITALS: BP 118/63; TEMP 97.2; O2SAT 99
[2025-08-24] MEDS: SODIUM BICARBONATE 325 MG TAB PO SCH (15:36)
[2025-08-24 19:24] VITALS: BP 122/64; TEMP 97.8; O2SAT 98
[2025-08-25] VITALS (7 sets, daily range): BP systolic 120–154; BP diastolic 64–74; TEMP 97–98.5; O2SAT 6–100
[2025-08-25 05:31] LABS: BASO # 0.1 10^3/uL (0.0-0.2); BASO % 1.0 % (0.0-1.0); EOS # 0.1 10^3/uL (0.0-0.5); EOS % 0.9 % (0.0-3.0); LYMPH # 2.0 10^3/uL (1.5-5.0); LYMPH % 25.0 % (24.0-44.0); MONO # 0.7 10^3/uL (0.0-0.8); MONO % 9.3 % (2.0-8.0); NEUTROPHILS # 5.0 10^3/uL (1.5-8.5); NEUTROPHILS % 63.3 % (36.0-66.0); PLATELET COUNT, AUTOMATED 302 10^3/uL (150-450)
[2025-08-25 06:01] LABS: CALCIUM LEVEL 8.0 MG/DL (8.3-10.6); CARBON DIOXIDE LEVEL 20.0 MMOL/L (20-31); CHLORIDE LEVEL 109.0 MMOL/L (98-107); CREATININE FOR GFR 2.75 MG/DL (0.55-1.30); GLOMERULAR FILTRATION RATE 17.2 (>39); MAGNESIUM LEVEL 2.0 MG/DL (1.8-2.4); POTASSIUM SERUM 3.9 MMOL/L (3.5-5.1); SODIUM LEVEL 141.0 MMOL/L (136-145)
[2025-08-25 11:46] LABS: IRON (FE) 89.0 UG/DL (50-170); PERCENT SATURATION 44.1 % (13.2-45.0)
[2025-08-26] MEDS ORDERED: HALOPERIDOL LACTATE 5 MG/ML VIAL As Ordered ONE (02:05)
[2025-08-26] MEDS ORDERED: HALOPERIDOL LACTATE 5 MG/ML VIAL IV STA (02:07)
[2025-08-26 04:33] VITALS: BP 145/69; TEMP 98.2; O2SAT 98
[2025-08-26 06:33] LABS: BASO # 0.1 10^3/uL (0.0-0.2); BASO % 1.3 % (0.0-1.0); EOS # 0.1 10^3/uL (0.0-0.5); EOS % 0.9 % (0.0-3.0); LYMPH # 1.8 10^3/uL (1.5-5.0); LYMPH % 21.5 % (24.0-44.0); MONO # 0.8 10^3/uL (0.0-0.8); MONO % 8.9 % (2.0-8.0); NEUTROPHILS # 5.7 10^3/uL (1.5-8.5); NEUTROPHILS % 67.0 % (36.0-66.0); PLATELET COUNT, AUTOMATED 325 10^3/uL (150-450)
[2025-08-26 06:37] LABS: CALCIUM LEVEL 8.0 MG/DL (8.3-10.6); CARBON DIOXIDE LEVEL 19.0 MMOL/L (20-31); CHLORIDE LEVEL 111.0 MMOL/L (98-107); CREATININE FOR GFR 2.11 MG/DL (0.55-1.30); GLOMERULAR FILTRATION RATE 23.5 (>39); MAGNESIUM LEVEL 1.4 MG/DL (1.8-2.4); POTASSIUM SERUM 3.7 MMOL/L (3.5-5.1); SODIUM LEVEL 142.0 MMOL/L (136-145)
[2025-08-26 08:00] VITALS: BP 148/82; TEMP 98.1; O2SAT 97
[2025-08-26] MEDS: MAG SULF 1GM/100ML (MAG RUN) 1 GM in IV 1 EA IV SCH (08:21)
[2025-08-26] MEDS: SODIUM BICARBONATE 325 MG TAB PO SCH (08:25)
[2025-08-26] MEDS: MOM 30 ML SUSPENSION UDC PO PRN (08:25)
[2025-08-26] MEDS: OLANZapine INTRAMUSCULAR 10MG VIAL IM STA (08:35)
[2025-08-26 12:00] VITALS: BP 129/69; TEMP 97.4; O2SAT 100
[2025-08-26 17:16] VITALS: BP 132/64; TEMP 97.4; O2SAT 97
[2025-08-26 20:05] VITALS: BP 138/73; TEMP 98.1; O2SAT 99
[2025-08-26 23:22] VITALS: BP 134/68; TEMP 98.2; O2SAT 98
[2025-08-27 03:21] VITALS: BP 146/69; TEMP 97.8; O2SAT 95
[2025-08-27 07:03] LABS: BASO # 0.1 10^3/uL (0.0-0.2); BASO % 1.2 % (0.0-1.0); EOS # 0.1 10^3/uL (0.0-0.5); EOS % 1.4 % (0.0-3.0); LYMPH # 2.2 10^3/uL (1.5-5.0); LYMPH % 23.1 % (24.0-44.0); MONO # 1.0 10^3/uL (0.0-0.8); MONO % 11.0 % (2.0-8.0); NEUTROPHILS # 5.9 10^3/uL (1.5-8.5); NEUTROPHILS % 62.9 % (36.0-66.0); PLATELET COUNT, AUTOMATED 326 10^3/uL (150-450)
[2025-08-27 07:22] LABS: CALCIUM LEVEL 8.0 MG/DL (8.3-10.6); CARBON DIOXIDE LEVEL 20.0 MMOL/L (20-31); CHLORIDE LEVEL 107.0 MMOL/L (98-107); CREATININE FOR GFR 1.79 MG/DL (0.55-1.30); GLOMERULAR FILTRATION RATE 28.7 (>39); MAGNESIUM LEVEL 2.0 MG/DL (1.8-2.4); POTASSIUM SERUM 3.5 MMOL/L (3.5-5.1); SODIUM LEVEL 140.0 MMOL/L (136-145)
[2025-08-27 07:51] VITALS: BP 172/90; TEMP 98.4; O2SAT 99
[2025-08-27] MEDS: POTASSIUM CHLORIDE 10MEQ SR TABLET PO ONE (11:55)
[2025-08-27 12:00] VITALS: BP 147/70; TEMP 97.7; O2SAT 97
[2025-08-27 16:00] VITALS: BP 160/71; TEMP 97.9; O2SAT 93
[2025-08-27 19:29] VITALS: BP 151/74; TEMP 98.7; O2SAT 97
[2025-08-28 04:15] VITALS: BP 140/67; TEMP 98.7; O2SAT 95
[2025-08-28 05:17] LABS: BASO # 0.1 10^3/uL (0.0-0.2); BASO % 1.0 % (0.0-1.0); EOS # 0.2 10^3/uL (0.0-0.5); EOS % 1.4 % (0.0-3.0); LYMPH # 2.8 10^3/uL (1.5-5.0); LYMPH % 22.4 % (24.0-44.0); MONO # 1.2 10^3/uL (0.0-0.8); MONO % 10.0 % (2.0-8.0); NEUTROPHILS # 7.9 10^3/uL (1.5-8.5); NEUTROPHILS % 64.8 % (36.0-66.0); PLATELET COUNT, AUTOMATED 335 10^3/uL (150-450)
[2025-08-28 05:49] LABS: CALCIUM LEVEL 9.1 MG/DL (8.3-10.6); CARBON DIOXIDE LEVEL 22.0 MMOL/L (20-31); CHLORIDE LEVEL 107.0 MMOL/L (98-107); CREATININE FOR GFR 1.98 MG/DL (0.55-1.30); GLOMERULAR FILTRATION RATE 25.4 (>39); MAGNESIUM LEVEL 1.7 MG/DL (1.8-2.4); POTASSIUM SERUM 4.0 MMOL/L (3.5-5.1); SODIUM LEVEL 141.0 MMOL/L (136-145)
[2025-08-28 08:04] VITALS: BP 137/69; TEMP 97.6; O2SAT 100
[2025-08-28] MEDS: MAG SULF 1GM/100ML (MAG RUN) 1 GM in IV 1 EA IV ONE (08:25)
[2025-08-28 09:15] VITALS: BP 161/72; TEMP 98; O2SAT 94
[2025-08-28 15:40] VITALS: BP 150/68; TEMP 96.5; O2SAT 99
[2025-08-28 19:26] VITALS: BP 110/56; TEMP 97.4; O2SAT 96
[2025-08-28 19:49] VITALS: BP 159/70; TEMP 97.7; O2SAT 100
[2025-08-28] MEDS: QUEtiapine FUMARATE 50MG TAB PO SCH (21:34)
[2025-08-29 04:12] VITALS: BP 163/74; TEMP 97.5; O2SAT 96
[2025-08-29 05:42] LABS: BASO # 0.1 10^3/uL (0.0-0.2); BASO % 0.9 % (0.0-1.0); EOS # 0.1 10^3/uL (0.0-0.5); EOS % 1.0 % (0.0-3.0); LYMPH # 2.5 10^3/uL (1.5-5.0); LYMPH % 25.3 % (24.0-44.0); MONO # 1.2 10^3/uL (0.0-0.8); MONO % 11.8 % (2.0-8.0); NEUTROPHILS # 6.1 10^3/uL (1.5-8.5); NEUTROPHILS % 60.6 % (36.0-66.0); PLATELET COUNT, AUTOMATED 296 10^3/uL (150-450)
[2025-08-29 06:16] LABS: CALCIUM LEVEL 9.0 MG/DL (8.3-10.6); CARBON DIOXIDE LEVEL 23.0 MMOL/L (20-31); CHLORIDE LEVEL 102.0 MMOL/L (98-107); CREATININE FOR GFR 1.67 MG/DL (0.55-1.30); GLOMERULAR FILTRATION RATE 31.2 (>39); MAGNESIUM LEVEL 1.5 MG/DL (1.8-2.4); POTASSIUM SERUM 3.4 MMOL/L (3.5-5.1); SODIUM LEVEL 140.0 MMOL/L (136-145)
[2025-08-29 07:47] VITALS: BP 167/77; TEMP 97.4; O2SAT 96
[2025-08-29] MEDS: MAG SULF 1GM/100ML (MAG RUN) 1 GM in IV 1 EA IV SCH (08:14)
[2025-08-29] MEDS: POTASSIUM CHLORIDE 10MEQ SR TABLET PO ONE (08:15)
[2025-08-29 16:08] VITALS: BP 130/55; TEMP 98; O2SAT 99
[2025-08-29 20:25] VITALS: BP 113/58; TEMP 97.8; O2SAT 96
[2025-08-30 04:43] VITALS: BP 126/60; TEMP 98.7; O2SAT 97
[2025-08-30 06:19] LABS: BASO # 0.1 10^3/uL (0.0-0.2); BASO % 0.7 % (0.0-1.0); EOS # 0.1 10^3/uL (0.0-0.5); EOS % 0.7 % (0.0-3.0); LYMPH # 1.6 10^3/uL (1.5-5.0); LYMPH % 15.2 % (24.0-44.0); MONO # 1.3 10^3/uL (0.0-0.8); MONO % 12.2 % (2.0-8.0); NEUTROPHILS # 7.3 10^3/uL (1.5-8.5); NEUTROPHILS % 70.6 % (36.0-66.0); PLATELET COUNT, AUTOMATED 297 10^3/uL (150-450)
[2025-08-30 06:20] LABS: CALCIUM LEVEL 9.0 MG/DL (8.3-10.6); CARBON DIOXIDE LEVEL 23.0 MMOL/L (20-31); CHLORIDE LEVEL 102.0 MMOL/L (98-107); CREATININE FOR GFR 1.64 MG/DL (0.55-1.30); GLOMERULAR FILTRATION RATE 31.9 (>39); MAGNESIUM LEVEL 1.7 MG/DL (1.8-2.4); POTASSIUM SERUM 3.3 MMOL/L (3.5-5.1); SODIUM LEVEL 140.0 MMOL/L (136-145)
[2025-08-30] MEDS ORDERED: MAG SULF 1GM/100ML (MAG RUN) 1 GM in IV 1 EA IV ONE (07:25)
[2025-08-30] MEDS: MAGNESIUM OXIDE 400 MG TAB PO ONE (12:22)
[2025-08-30] MEDS: POTASSIUM CHLORIDE 10MEQ SR TABLET PO ONE (12:23)
[2025-08-30 12:30] VITALS: BP 136/68; TEMP 97.8; O2SAT 97
[2025-08-30 22:11] VITALS: BP 138/66; TEMP 98; O2SAT 95
[2025-08-31 01:21] VITALS: BP 119/60; TEMP 98; O2SAT 92
[2025-08-31 05:44] VITALS: BP 109/54; TEMP 97.9; O2SAT 91
[2025-08-31 08:09] VITALS: BP 106/60; TEMP 97.8; O2SAT 92
[2025-08-31 08:38] LABS: BASO # 0.0 10^3/uL (0.0-0.2); BASO % 0.5 % (0.0-1.0); EOS # 0.1 10^3/uL (0.0-0.5); EOS % 0.9 % (0.0-3.0); LYMPH # 2.5 10^3/uL (1.5-5.0); LYMPH % 33.0 % (24.0-44.0); MONO # 0.9 10^3/uL (0.0-0.8); MONO % 11.8 % (2.0-8.0); NEUTROPHILS # 4.0 10^3/uL (1.5-8.5); NEUTROPHILS % 53.4 % (36.0-66.0); PLATELET COUNT, AUTOMATED 287 10^3/uL (150-450)
[2025-08-31] MEDS: DONEPEZIL 5 MG TAB PO SCH (09:11)
[2025-08-31 09:21] LABS: CALCIUM LEVEL 8.7 MG/DL (8.3-10.6); CARBON DIOXIDE LEVEL 29.0 MMOL/L (20-31); CHLORIDE LEVEL 104.0 MMOL/L (98-107); CREATININE FOR GFR 1.49 MG/DL (0.55-1.30); GLOMERULAR FILTRATION RATE 35.7 (>39); MAGNESIUM LEVEL 1.6 MG/DL (1.8-2.4); POTASSIUM SERUM 3.8 MMOL/L (3.5-5.1); SODIUM LEVEL 142.0 MMOL/L (136-145)
[2025-08-31] MEDS: MAGNESIUM OXIDE 400 MG TAB PO SCH (10:20)
[2025-08-31 19:53] VITALS: BP 131/75; TEMP 98.3; O2SAT 94
[2025-09-01 00:02] VITALS: BP 136/60; TEMP 97.9; O2SAT 92
[2025-09-01 04:05] VITALS: BP 144/67; TEMP 97.5; O2SAT 92
[2025-09-01 07:30] VITALS: BP 152/71; TEMP 97.3; O2SAT 94
[2025-09-01 19:18] VITALS: BP 118/65; TEMP 98.1; O2SAT 94
[2025-09-02 07:38] VITALS: BP 158/72; TEMP 98.6; O2SAT 96
[2025-09-02 19:53] VITALS: BP 153/65; TEMP 98.1; O2SAT 94
[2025-09-03 07:36] VITALS: BP 136/62; TEMP 97.5; O2SAT 93
[2025-09-04 03:56] VITALS: BP 105/51; TEMP 97.2; O2SAT 93
[2025-09-04 08:11] VITALS: BP 118/59; TEMP 97.4; O2SAT 93
[2025-09-04 12:04] VITALS: BP 120/71; TEMP 97.6; O2SAT 98
[2025-09-04 15:46] VITALS: BP 125/59; TEMP 97.1; O2SAT 97
[2025-09-04 17:00] VITALS: BP 168/77; TEMP 98.6; O2SAT 91
[2025-09-05 03:52] VITALS: BP 106/49; TEMP 98.1; O2SAT 95
[2025-09-05 11:52] LABS: CALCIUM LEVEL 9.4 MG/DL (8.3-10.6); CARBON DIOXIDE LEVEL 29.0 MMOL/L (20-31); CHLORIDE LEVEL 101.0 MMOL/L (98-107); CREATININE FOR GFR 1.46 MG/DL (0.55-1.30); GLOMERULAR FILTRATION RATE 36.6 (>39); POTASSIUM SERUM 4.6 MMOL/L (3.5-5.1); SODIUM LEVEL 139.0 MMOL/L (136-145)
[2025-09-05] MEDS: SODIUM BICARBONATE 325 MG TAB PO SCH (20:35)
[2025-09-06 03:38] VITALS: BP 123/61; TEMP 98.2; O2SAT 95
[2025-09-06 16:00] VITALS: BP 138/64; TEMP 98.7; O2SAT 97
[2025-09-07 04:13] VITALS: BP 120/61; TEMP 97.9; O2SAT 96
[2025-09-07 15:46] VITALS: BP 130/60; TEMP 98.2; O2SAT 99
[2025-09-08 04:12] VITALS: BP 107/57; TEMP 97.8; O2SAT 95
[2025-09-08 20:19] VITALS: BP 141/74
[2025-09-09 03:44] VITALS: BP 108/53; TEMP 97.4; O2SAT 100
[2025-09-09 09:51] VITALS: BP 110/58
[2025-09-10 04:35] VITALS: BP 109/54; TEMP 98.4; O2SAT 97
[2025-09-11 06:10] VITALS: BP 121/56; TEMP 98.6; O2SAT 97
[2025-09-11 09:30] VITALS: BP 107/52; TEMP 98.4; O2SAT 100
[2025-09-12 03:56] VITALS: BP 130/59; TEMP 98.4; O2SAT 97
[2025-09-12 08:57] VITALS: BP 114/56
[2025-09-12] MEDS ORDERED: CITA10TA7 PO (11:46)
[2025-09-12] MEDS ORDERED: SODI325T9 PO (11:46)
[2025-09-12] MEDS ORDERED: MAGN400T33 PO (11:46)
[2025-09-12] MEDS ORDERED: ARIC1TAB PO (11:46)
[2025-09-12] MEDS ORDERED: QUET1TAB17 PO (11:55)
== END 2025-09-12 13:18 | disposition home health service (06) | DRG 683 ==
LOC: M ED 10:22 → M ED INP 15:54 → M PCU 17:10 → M MSPAV 09-04 16:55
PROVIDERS: ADMIT Internal Medicine; ATTEND Student in an Organized Health Care Education/Training Program
DX: N17.9 Acute kidney failure, unspecified (principal); N39.0 Urinary tract infection, site not specified; E87.20 Acidosis, unspecified; Z66 Do not resuscitate; F43.22 Adjustment disorder with anxiety; I12.9 Hypertensive chronic kidney disease with stage 1 through stage 4 chronic kidney disease, or unspecified chronic kidney disease; J44.9 Chronic obstructive pulmonary disease, unspecified; E78.5 Hyperlipidemia, unspecified; D64.9 Anemia, unspecified; M19.90 Unspecified osteoarthritis, unspecified site; M81.0 Age-related osteoporosis without current pathological fracture; K21.9 Gastro-esophageal reflux disease without esophagitis; K44.9 Diaphragmatic hernia without obstruction or gangrene; K86.89 Other specified diseases of pancreas; K27.9 Peptic ulcer, site unspecified, unspecified as acute or chronic, without hemorrhage or perforation; R29.6 Repeated falls; K59.00 Constipation, unspecified; I16.0 Hypertensive urgency; D72.820 Lymphocytosis (symptomatic); R26.89 Other abnormalities of gait and mobility; M25.551 Pain in right hip; R91.8 Other nonspecific abnormal finding of lung field; N18.30 Chronic kidney disease, stage 3 unspecified; E87.6 Hypokalemia; E83.42 Hypomagnesemia; Z79.82 Long term (current) use of aspirin; Z79.899 Other long term (current) drug therapy; Z88.0 Allergy status to penicillin; Z98.41 Cataract extraction status, right eye; Z98.42 Cataract extraction status, left eye; E86.0 Dehydration; R41.0 Disorientation, unspecified; F02.80 Dementia in other diseases classified elsewhere, unspecified severity, without behavioral disturbance, psychotic disturbance, mood disturbance, and anxiety; G31.83 Neurocognitive disorder with Lewy bodies; G20.C Parkinsonism, unspecified; G89.29 Other chronic pain